=== PATIENT | female | born 1970 | race Caucasian/White ===

== ENCOUNTER 2020-01-25 05:20 | Emergency (ER) | payer OTHER ==
[~2020-01-25] VITALS: Ht 157.5 cm; Wt 68.9 kg
[2020-01-25] MEDS ORDERED: LEVSIN/SL0.125 MG SL (10:04)
[2020-01-25] MEDS ORDERED: PEPCID AC20 MG PO (10:04)
[2020-01-25] MEDS ORDERED: KETO10TA2 PO (10:04)
== END 2020-01-25 10:48 | disposition home or self-care (01) ==
LOC: ER 05:20
DX: K80.80 Other cholelithiasis without obstruction (principal); R10.13 Epigastric pain; Z03.818 Encounter for observation for suspected exposure to other biological agents ruled out

== ENCOUNTER 2021-01-22 08:00 | Outpatient (CLI) | payer OTHER ==
[~2021-01-22 08:00] MED LIST: KETO10TA2 PO; LEVSIN/SL0.125 MG SL; PEPCID AC20 MG PO
== END 2021-01-22 08:30 | disposition home or self-care (01) ==
LOC: PPH VACUNA 08:00
DX: Z23 Encounter for immunization (principal)

== ENCOUNTER 2021-02-12 15:00 | Outpatient (CLI) | payer OTHER | END 2021-02-12 15:30 | disposition home or self-care (01) | LOC: PPH VACUNA 15:00 | PROVIDERS: ATTEND Emergency Medicine Pediatric Emergency Medicine | DX: Z23 Encounter for immunization (principal) ==